=== PATIENT | male | born 1955 | race Caucasian/White ===

== ENCOUNTER 2020-06-06 06:25 | Day surgery (SDC) | payer MEDICARE, OTHER ==
[2020-06-06] VITALS (11 sets, daily range): BP systolic 122–162; BP diastolic 70–86; PULSE 63–88; TEMP 97.6–98.8
[~2020-06-06] VITALS: Ht 180.3 cm; Wt 94.1 kg
[2020-06-06] MEDS ORDERED: PROSCAR 5MG5 MG PO ×2 (06:41→12:00)
[2020-06-06] MEDS ORDERED: PRINIVIL10 MG PO (06:48)
[2020-06-06] MEDS ORDERED: MOBIC 7.5MG7.5 MG PO (06:49)
[2020-06-06] MEDS ORDERED: ASPIRIN 81M81 MG/TA2 PO (06:49)
[2020-06-06] MEDS ORDERED: PRINIVIL20 MG PO (07:45)
--- NOTE | 2020-06-06 08:37 | NUR ---
The patient was taken via cart to the operating room at this time. The patient's chart was sent with him to [facility]. The patient's belongings were taken over to the recovery room and will be transferred with the patient to the 3rd floor post operatively.
[2020-06-06] MEDS ORDERED: LIPITOR20 MG PO (11:58)
--- NOTE | 2020-06-06 15:44 | NUR ---
Patient resting in bed. He continues to do well post op. Spinal is begining to wear off. He tolerated lunch no nausea. Vital stable. He did have a bout of increased pain, but that improved with repositioning. CBI slowed now infusing at a moderate rate. pink output. IVf per orders. Scds ble. Will monitor.
--- NOTE | 2020-06-06 18:16 | NUR ---
Patient resting in bed. tolerated dinner. minimal complaints, some burning noted at shaikh insertion. denies the need for any medication. Shaikh to dd, with pink output. Cbi to moderate rate. Scds ble. Will report off to night nurse
--- NOTE | 2020-06-06 21:00 | NUR ---
Pt in bed, alert and oriented x4. Has IVF infusing to left hand, no redness or swelling noted. Has shaikh with CBI at moderate rate, urine is pink. Refuses Colace and denies need for sleep med.
[2020-06-07 00:06] VITALS: BP 146/73; PULSE 84; TEMP 98
[2020-06-07 04:00] VITALS: BP 133/73; PULSE 93; TEMP 97.1
--- NOTE | 2020-06-07 05:41 | NUR ---
Pt will little output, reports feeling "a little full" in his bladder. Did hand irrigate at this time with return of small clot, urine flowing well now, pink in color.
[2020-06-07 07:50] VITALS: BP 136/71; PULSE 82; TEMP 98.6
--- NOTE | 2020-06-07 08:39 | NUR ---
PT SITTING UP IN BED AFTER EATING BREAKFAST. LS CTA, BOWEL SOUNDS PRESENT. URINE IN STEELE BAG PINK AND CLEAR. PT DENIES PAIN OR NEEDS AT THIS TIME. PT EATING AND DRINKING WITH NO N/V. PT WOULD LIKE TO DC LATER [place]. STEELE WITH CBI TO DD. CBI RUNNING SLOW. PT REPORTS POSSIBLE DISCHARGE LATER TODAY.
[2020-06-07 11:07] VITALS: BP 149/74; PULSE 70; TEMP 97.4
[2020-06-07] MEDS ORDERED: PYRIDIUM 100MG100 MG PO (12:14)
--- NOTE | 2020-06-07 13:38 | NUR ---
DISCHARGE INSTRUCTIONS REVIEWED WITH PATIENT QUESTIONS ANSWERED. PT LEFT FLOOR AMBULATORY WITH STAFF.
== END 2020-06-07 13:39 | disposition home or self-care (01) ==
LOC: SDCO → SURG 10:33 → SDCO 06-07 13:39
DX: N40.1 Benign prostatic hyperplasia with lower urinary tract symptoms (principal); N13.8 Other obstructive and reflux uropathy; N32.89 Other specified disorders of bladder; N42.89 Other specified disorders of prostate; R35.1 Nocturia; R39.12 Poor urinary stream; R39.14 Feeling of incomplete bladder emptying; R97.20 Elevated prostate specific antigen [PSA]; I71.4 Abdominal aortic aneurysm, without rupture; I65.29 Occlusion and stenosis of unspecified carotid artery; I10 Essential (primary) hypertension; E03.9 Hypothyroidism, unspecified; E78.2 Mixed hyperlipidemia; M19.90 Unspecified osteoarthritis, unspecified site; M47.16 Other spondylosis with myelopathy, lumbar region; Z85.828 Personal history of other malignant neoplasm of skin; Z79.82 Long term (current) use of aspirin; Z79.899 Other long term (current) drug therapy; Z87.891 Personal history of nicotine dependence; Z88.8 Allergy status to other drugs, medicaments and biological substances; Z20.822 Contact with and (suspected) exposure to COVID-19
CPT/HCPCS: OP; J0690; J2250; J2405; J2704; J3010; J7030; J7120

== ENCOUNTER → 2021-11-18 | Outpatient (CLI) | payer MEDICARE, OTHER ==
[~2021-11-18] MED LIST: ASPIRIN 81M81 MG/TA2 PO; LIPITOR20 MG PO; MOBIC 7.5MG7.5 MG PO; PRINIVIL10 MG PO; PRINIVIL20 MG PO; PROSCAR 5MG5 MG PO; PYRIDIUM 100MG100 MG PO
== END ==
LOC: COL.RAD 07:01
DX: J98.11 Atelectasis (principal); R79.1 Abnormal coagulation profile; R07.9 Chest pain, unspecified
CPT/HCPCS: A9540; A9567

== ENCOUNTER → 2023-04-01 | Outpatient (CLI) | payer MEDICARE, OTHER ==
[~2023-04-01] MED LIST changes: +COZAAR100 MG PO; +ELIQUIS 5MG PO; +Monodox PO; +NORVASC 5MG5 MG/TAB PO; +THALITONE PO; +THE MEDICINE S200 M2 PO; +ZYLOPRIM 100MG100 MG PO
== END ==
LOC: COL.RAD 06:56
DX: N40.2 Nodular prostate without lower urinary tract symptoms (principal); R97.20 Elevated prostate specific antigen [PSA]
CPT/HCPCS: A9575